=== PATIENT | male | born 1970 | race African-American/Black ===

== ENCOUNTER 2017-03-07 15:02 | Emergency (ER) | payer OTHER ==
[~2017-03-07] VITALS: Ht 180.3 cm; Wt 120.5 kg
[2017-03-07 16:08] VITALS: BP 134/80
[2017-03-07] MEDS ORDERED: TraMADol HCL 50 MG TABLET PO ONE (17:00)
== END 2017-03-07 17:10 | disposition home or self-care (01) ==
LOC: EMS 15:05
DX: M25.861 Other specified joint disorders, right knee (principal); M25.862 Other specified joint disorders, left knee; M54.5 Low back pain; I10 Essential (primary) hypertension
CPT/HCPCS: 29505; 99283

== ENCOUNTER 2017-12-02 12:02 | Emergency (ER) | payer OTHER ==
[~2017-12-02] VITALS: Ht 180.3 cm; Wt 120.0 kg
[2017-12-02] MEDS ORDERED: CYCLOBENZAPRINE HCL 10 MG TABLET PO ONE (13:45)
[2017-12-02 15:00] VITALS: BP 125/61
== END 2017-12-02 15:01 | disposition home or self-care (01) ==
LOC: EMS 12:03
DX: M62.838 Other muscle spasm (principal); M25.512 Pain in left shoulder; I10 Essential (primary) hypertension
CPT/HCPCS: 99283

== ENCOUNTER 2018-06-12 09:20 | Emergency (ER) | payer OTHER ==
[~2018-06-12] VITALS: Ht 180.3 cm; Wt 121.4 kg
[2018-06-12] MEDS: KETOROLAC TROMETHAMINE 60 MG/2 ML VIAL IM ONE (11:46)
[2018-06-12 12:08] VITALS: BP 117/92
== END 2018-06-12 12:10 | disposition home or self-care (01) ==
LOC: EMS 09:21
DX: M25.562 Pain in left knee (principal); M79.89 Other specified soft tissue disorders; I10 Essential (primary) hypertension
CPT/HCPCS: 73562; 96372; 99283; J1885

== ENCOUNTER 2021-01-24 14:09 | Emergency (ER) | payer OTHER ==
[~2021-01-24] VITALS: Ht 180.3 cm; Wt 113.6 kg
[2021-01-24] MEDS ORDERED: KETOROLAC TROMETHAMINE 30 MG/ML VIAL IM ONE (15:00)
[2021-01-24] MEDS ORDERED: HYDROCODONE/ACETAMINOPHEN 5-325 MG TABLET PO ONE (16:15)
[2021-01-24 17:31] VITALS: BP 109/84
== END 2021-01-24 17:58 | disposition home or self-care (01) ==
LOC: EMS 14:12
DX: S83.91XA Sprain of unspecified site of right knee, initial encounter (principal); M17.0 Bilateral primary osteoarthritis of knee; M25.461 Effusion, right knee; I10 Essential (primary) hypertension; X58.XXXA Exposure to other specified factors, initial encounter; Y93.89 Activity, other specified; Y92.89 Other specified places as the place of occurrence of the external cause; Y99.0 Civilian activity done for income or pay
CPT/HCPCS: 36415; 73562 ×2; 84550; 96372; 99284; J1885

== ENCOUNTER → 2021-05-06 | Emergency (ER) | payer OTHER ==
[~2021-05-06] VITALS: Ht 180.3 cm; Wt 109.1 kg
[~2021-05-06] MED LIST: GuaiFENesin/D-METHORPHAN [SUGAR-FREE] 200-20MG/10 ML SYRUP UDCUP PO ONE; HYDROCODONE/ACETAMINOPHEN 5-325 MG TABLET PO ONE; IBUPROFEN 800 MG TABLET PO ONE
[2021-05-06 19:24] LABS: COVID AG,FIA SOURCE NASOPHARYNGEAL
[2021-05-06 19:55] VITALS: BP 130/83
[2021-05-06 19:56] LABS: INFLUENZA TYPE A NEGATIVE FOR TYPE A (NEGATIVE); INFLUENZA TYPE B NEGATIVE FOR TYPE B (NEGATIVE)
== END | disposition home or self-care (01) ==
LOC: EMS 18:08
DX: U07.1 COVID-19 (principal); I10 Essential (primary) hypertension; M10.9 Gout, unspecified
CPT/HCPCS: 87804; 99284; Z7502; Z7610

== ENCOUNTER 2023-06-02 01:39 | Emergency (ER) | payer OTHER ==
[~2023-06-02] VITALS: Ht 180.3 cm; Wt 120.5 kg
[2023-06-02] MEDS ORDERED: MethylPREDNISolone SOD SUCC 125 MG/2 ML VIAL IM ONE (02:00)
[2023-06-02] MEDS: MethylPREDNISolone SOD SUCC 125 MG/2 ML VIAL IM ONE (02:17)
[2023-06-02] MEDS: HYDROCODONE/ACETAMINOPHEN 5-325 MG TABLET PO ONE (02:17)
[2023-06-02] MEDS ORDERED: COLC0.6T68 PO (02:50)
[2023-06-02] MEDS ORDERED: TRAM-559 PO (02:50)
[2023-06-02 03:10] LABS: BASOPHILS % (AUTO) 0.5 % (0.0-2.0); EOSINOPHILS % (AUTO) 0.3 % (1.0-6.0); HEMATOCRIT 37.1 % (41-53); HEMOGLOBIN 12.7 g/dL (13.5-17.5); LYMPHOCYTES # (AUTO) 0.9 K/uL (1.0-4.8); LYMPHOCYTES % (AUTO) 7.4 % (22.0-44.0); MEAN CORPUSCULAR HEMOGLOBIN 28.6 pg (26.0-34.0); MEAN CORPUSCULAR HGB CONC 34.1 G/dL (31.0-37.0); MEAN CORPUSCULAR VOLUME 84 fL (80-100); MONOCYTES # (AUTO) 1.4 K/uL (0.1-1.0); MONOCYTES % (AUTO) 11.2 % (2.0-9.0); NEUTROPHILS # (AUTO) 10.1 K/uL (1.8-7.7); NEUTROPHILS % (AUTO) 80.6 % (40.0-70.0); PLATELET COUNT (AUTO) 297 K/uL (150-450); RED BLOOD CELL COUNT(AUTO) 4.43 MIL/uL (4.50-5.90); RED CELL DISTRIBUTION WIDTH 15.5 % (11.5-14.5); WHITE BLOOD COUNT (AUTO) 12.6 K/uL (4.5-11.0)
[2023-06-02 03:23] LABS: ANION GAP 9 mmol/L (8-16); CALCIUM, TOTAL 9.2 mg/dL (8.8-10.5); CARBON DIOXIDE 29 mmol/L (22-29); CHLORIDE 101 mmol/L (98-107); GLOMERULAR FILTR. RATE CALC > 60 mL/min (>60); GLUCOSE,RANDOM 132 mg/dL (70-110); POTASSIUM 4.2 mmol/L (3.5-5.1); SODIUM SERUM 139 mmol/L (136-145); UREA NITROGEN, BLOOD 14 mg/dL (7-18)
[2023-06-02 03:25] LABS: ALANINE AMINOTRANSFERASE 20 U/L (12-78); ALBUMIN 4.4 g/dL (3.4-5.0); ALKALINE PHOSPHATASE 106 U/L (46-116); ASPARTATE AMINOTRANSFERASE 14 U/L (15-37); BILIRUBIN,TOTAL 0.9 mg/dL (0.1-1.0); TOTAL PROTEIN, SERUM 8.7 g/dL (6.4-8.2)
[2023-06-02] MEDS ORDERED: CEPH-558 PO (04:25)
[2023-06-02 04:30] VITALS: BP 129/68; PULSE 74; RESP 16; TEMP 97.2
== END 2023-06-02 05:47 | disposition home or self-care (01) ==
LOC: EMS 01:41
DX: M10.9 Gout, unspecified (principal); M19.90 Unspecified osteoarthritis, unspecified site; I10 Essential (primary) hypertension
CPT/HCPCS: 99284; 80053; 85025; 36415; 73562; 96372; J2930

== ENCOUNTER 2024-12-14 11:02 | Emergency (ER) | payer OTHER ==
[~2024-12-14] VITALS: Ht 180.3 cm; Wt 120.5 kg
[~2024-12-14 11:02] MED LIST changes: +CEPH-558 PO; +COLC0.6T68 PO; -GuaiFENesin/D-METHORPHAN [SUGAR-FREE] 200-20MG/10 ML SYRUP UDCUP PO ONE; -HYDROCODONE/ACETAMINOPHEN 5-325 MG TABLET PO ONE; -IBUPROFEN 800 MG TABLET PO ONE; +TRAM50TA5 PO
[2024-12-14 11:10] VITALS: TEMP 97.9
[2024-12-14 11:36] LABS: BASOPHILS % (AUTO) 1.1 % (0.0-2.0); EOSINOPHILS % (AUTO) 4.6 % (1.0-6.0); HEMATOCRIT 39.9 % (41-53); HEMOGLOBIN 13.5 g/dL (13.5-17.5); LYMPHOCYTES # (AUTO) 1.5 K/uL (1.0-4.8); LYMPHOCYTES % (AUTO) 31.1 % (22.0-44.0); MEAN CORPUSCULAR HEMOGLOBIN 28.3 pg (26.0-34.0); MEAN CORPUSCULAR HGB CONC 33.8 G/dL (31.0-37.0); MEAN CORPUSCULAR VOLUME 84 fL (80-100); MONOCYTES # (AUTO) 0.4 K/uL (0.1-1.0); MONOCYTES % (AUTO) 8.6 % (2.0-9.0); NEUTROPHILS # (AUTO) 2.7 K/uL (1.8-7.7); NEUTROPHILS % (AUTO) 54.6 % (40.0-70.0); PLATELET COUNT (AUTO) 244 K/uL (150-450); RED BLOOD CELL COUNT(AUTO) 4.78 MIL/uL (4.50-5.90); RED CELL DISTRIBUTION WIDTH 15.7 % (11.5-14.5); WHITE BLOOD COUNT (AUTO) 4.9 K/uL (4.5-11.0)
[2024-12-14 11:44] LABS: ANION GAP 6 mmol/L (8-16); CALCIUM, TOTAL 8.7 mg/dL (8.8-10.5); CARBON DIOXIDE 28 mmol/L (22-29); CHLORIDE 106 mmol/L (98-107); CREATININE 1.06 mg/dL (0.60-1.30); GLOMERULAR FILTR. RATE CALC > 60 mL/min (>60); GLUCOSE,RANDOM 105 mg/dL (70-110); POTASSIUM 3.9 mmol/L (3.5-5.1); SODIUM SERUM 140 mmol/L (136-145); UREA NITROGEN, BLOOD 9 mg/dL (7-18)
[2024-12-14 11:53] LABS: TROPONIN I-HIGH SENSITIVITY 5 ng/L (<76)
[2024-12-14 12:30] VITALS: BP 121/63; PULSE 68; RESP 16; O2SAT 98
[2024-12-14] MEDS: SODIUM CHLORIDE 0.9% 500 ML IV ONE (12:42)
[2024-12-14] MEDS: MECLIZINE HCL 25 MG TABLET PO ONE (12:42)
[2024-12-14] MEDS ORDERED: MECL-302 PO (13:32)
== END 2024-12-14 13:54 | disposition home or self-care (01) ==
LOC: EMS 11:02
DX: H81.10 Benign paroxysmal vertigo, unspecified ear (principal); I10 Essential (primary) hypertension
CPT/HCPCS: 99284; 96360; 80048; 84484; 85025; 36415; 93005; J7040